=== PATIENT | female | born 1985 | race Caucasian/White ===

== ENCOUNTER 2017-11-22 21:53 | Emergency (ER) | payer SELFPAY ==
[~2017-11-22] VITALS: Ht 162.6 cm; Wt 100.5 kg
[~2017-11-22 21:53] MED LIST: ATEN25TA PO; FERR325T PO; GUAI100S5 PO; LEVA500T33 PO; MEDR4PAK PO; VENTAER INH
[2017-11-22 21:57] VITALS: BP 175/97; PULSE 98; RESP 16; TEMP 98.7; O2SAT 100
[2017-11-22] MEDS ORDERED: CEPH-460 PO (22:17)
[2017-11-22] MEDS ORDERED: LOSA25TA PO (22:17)
[2017-11-22] MEDS ORDERED: HYDR-3288 PO (22:17)
[2017-11-22 22:58] LABS: AMORPHOUS SEDIMENT, URINE RARE; BACTERIA, URINE OCC /hpf; BILIRUBIN, URINE NEG (NEG); BLOOD, URINE LARGE (NEG); GLUCOSE,URINE NEG (NEG); KETONE, URINE NEG (NEG); NITRITE,URINE POS (NEG); PH, URINE 7.5 (5.0-8.5); SQUAMOUS EPITHELIAL CELL URINE <1 /hpf (0-5); URINE COLOR DARK-YELLOW (YELLW/STRAW); URINE LEUKOCYTE ESTERASE MOD (NEG)
== END 2017-11-23 02:40 | disposition left against medical advice (07) ==
LOC: NED 21:53
DX: T81.9XXA Unspecified complication of procedure, initial encounter (principal)
CPT/HCPCS: 81001; 87086; 99281